=== PATIENT | male | born 2000 | race Two or more races ===

== ENCOUNTER 2023-08-30 16:46 | Emergency (ER) | payer MEDICAID ==
[~2023-08-30] VITALS: Ht 165.1 cm; Wt 84.6 kg
[2023-08-30 18:48] VITALS: BP 146/97; PULSE 82; RESP 16; TEMP 97.7; O2SAT 100
[2023-08-30] MEDS ORDERED: CYCL-611 PO (20:05)
[2023-08-30] MEDS ORDERED: IBUP1TAB5 PO (20:05)
[2023-08-30] MEDS ORDERED: HYDROcodone-ACET 5/325MG TAB PO ONE (20:15)
== END 2023-08-30 20:35 | disposition home or self-care (01) ==
LOC: ER 16:46
DX: S13.9XXA Sprain of joints and ligaments of unspecified parts of neck, initial encounter (principal); S23.3XXA Sprain of ligaments of thoracic spine, initial encounter; S20.213A Contusion of bilateral front wall of thorax, initial encounter; V49.9XXA Car occupant (driver) (passenger) injured in unspecified traffic accident, initial encounter; Y93.89 Activity, other specified; Y92.410 Unspecified street and highway as the place of occurrence of the external cause; Y99.8 Other external cause status
CPT/HCPCS: 71111; 72125